=== PATIENT | female | born 1945 | race Caucasian/White ===

== ENCOUNTER 2023-05-11 08:44 | Outpatient (AMB) | payer MEDICARE, SELFPAY ==
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
[2023-05-11 08:50] VITALS: BP 118/70; BMI 30.8
== END 2023-05-11 10:31 | disposition home or self-care (01) ==
PROVIDERS: PCP Internal Medicine; Visit Provider Nurse Practitioner Family
DX: G24.3 Spasmodic torticollis (principal); R49.8 Other voice and resonance disorders; Q99.2 Fragile X chromosome; R29.818 Other symptoms and signs involving the nervous system
CPT/HCPCS: 99204

== ENCOUNTER → 2023-05-11 08:44 | Outpatient (BNVA) | payer MEDICARE, SELFPAY | PROVIDERS: PCP Internal Medicine; Visit Provider Nurse Practitioner Family | DX: G24.3 Spasmodic torticollis (principal); R49.8 Other voice and resonance disorders; Q99.2 Fragile X chromosome; R29.818 Other symptoms and signs involving the nervous system | CPT/HCPCS: 99202 ==

== ENCOUNTER 2023-06-27 09:20 | Outpatient (REF) | payer MEDICARE, SELFPAY ==
--- NOTE | ~2023-06-27 | MR_ITS ---
EXAMINATION: MR BRAIN WITHOUT CONTRAST CLINICAL INFORMATION: Tremor, ataxia COMPARISON: None available TECHNIQUE: MRI of the brain was obtained using routine sequences without contrast. FINDINGS: There is no reduced diffusion to suggest acute infarct. Susceptibility weighted sequence is within normal limits. No mass effect, extra-axial collection, midline shift, or other herniation. Chronic lacunar infarction in the right cerebellar hemisphere The ventricles and sulci are normal in size and configuration for the patient's age. Periventricular, subcortical, and pontine T2/FLAIR hyperintense foci are nonspecific but likely represent moderate to advanced chronic microvascular ischemic change. Intracranial flow voids are preserved. Mild ethmoid air cell mucosal thickening. The mastoid air cells are well-aerated. Bilateral intraocular lens placement. No focal expansile/destructive osseous lesion. MR/MR head/brain wo con IMPRESSION: No acute infarction. Moderate to advanced chronic microvascular ischemic change.
== END 2023-06-27 09:21 | disposition home or self-care (01) ==
LOC: HO.MRI 09:20
PROVIDERS: PCP Internal Medicine; Visit Provider Nurse Practitioner Family
DX: R25.1 Tremor, unspecified (principal); R49.8 Other voice and resonance disorders
CPT/HCPCS: 70551

== ENCOUNTER 2023-08-10 08:42 | Outpatient (AMB) | payer MEDICARE, SELFPAY ==
--- NOTE | 2023-08-10 08:51 | MHC.OFFVIS ---
Intake Vital Signs 08/10/23 08:52 Height 5 ft 3 in Weight 175 lb BMI 31.0 BP 120/72 Blood Pressure Location Rt brachial Position Sitting Pulse 56 Pulse Source Pulse Oximeter Pulse Oximetry (%) 97 Oxygen Delivery Method Room Air Intake Visit Reasons: 3M follow up-LVM Intake Note: Patient presents for 3 month follow up. I had Covid in july this is my first time out. Allergies No Known Allergies Allergy (Verified 08/10/23 09:02) Medication List - Last Reconciled 08/10/23 by QUINN Dangelo magnesium oxide 400 mg PO BEDTIME 30 days onabotulinumtoxinA (Botox) 100 units IM ONCE 12 weeks propranolol 10 mg PO BID 30 days riboflavin (vitamin B2) 400 mg PO DAILY 30 days HPI HPI Comments History of Present Illness Details 77-yr-old female presents for f/u visit. Pt did have an interval Covid-19 infection. Pt reports her headaches are a bit better. She thinks she has had a slight decrease in her tremor. Her voice tremor, spasms are still bothersome- her voice cracks, it makes it hard for other people to understand her. Denies recent swallowing difficulties. She can still be off-balance. Plans to start walking more. 06/27/23, MR BRAIN WITHOUT CONTRAST CLINICAL INFORMATION: Tremor, ataxia COMPARISON: None available TECHNIQUE: MRI of the brain was obtained using routine sequences without contrast. FINDINGS: -There is no reduced diffusion to suggest acute infarct. Susceptibility weighted sequence is within normal limits. No mass effect, extra-axial collection, midline shift, or other herniation. -Chronic lacunar infarction in the right cerebellar hemisphere -The ventricles and sulci are normal in size and configuration for the patient's age. Periventricular, subcortical, and pontine T2/FLAIR hyperintense foci are nonspecific but likely represent moderate to advanced chronic microvascular ischemic change. Intracranial flow voids are preserved. -Mild ethmoid air cell mucosal thickening. The mastoid air cells are well-aerated. Bilateral intraocular lens placement. No focal expansile/destructive osseous lesion. MR/MR head/brain wo con IMPRESSION: No acute infarction. Moderate to advanced chronic microvascular ischemic change. [facility] Medical History (Updated 08/10/23 @ 09:55 by QUINN Dangelo) Thyroid nodule Surgical History History of left cataract surgery History of intestinal surgery Family History Mother HTN (hypertension) Hyperlipidemia Stroke Social History Alcohol intake: current Comment: rarely Patient Tobacco Use Status: Never used Tobacco Review of Systems Const All systems reviewed & are unremarkable except as noted in HPI and below Physical Exam Vital Signs: Last Vital Signs Pulse 56 08/10/23 08:52 BP 120/72 08/10/23 08:52 Pulse Ox 97 08/10/23 08:52 Oxygen Delivery Method Room Air 08/10/23 08:52 BMI result Body Mass Index 31.0 Const General: cooperative and no acute distress Resp Effort & Inspection: normal respiratory effort and able to speak in complete sentences Neuro Other: General: A&O x's 3 Head/neck: Head tremor w/ Left laterocollis, with bilateral posterior and lateral cervical tightness and tenderness, limited cervical ROM. Eyes: Bilateral mild horizontal nystagmus on right lateral end gaze Expression: ok Voice: Soft w/ tremor, tight dysponia Tremor: Mild intermittent RUE tremor. 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 Discussed that Fragile X can increase risk for intracranial white matter disease, and thus importance in identifying and optimizing any comorbid CV risk factors. BP is normotenisve. Check labs Check head/neck CTA Encouraged pt to engage in regular physical activity, social and cognitive stimulating activities. Conisder starting ASA upon review of above. For tremor, cervical dystonia, voice tremor/dysphonia: Again- XR c-spine Continue Propranol 10mg bid Start Botox 100 IM for cervical dystonia, as pt has bothersome head tremor, left laterocollis, limited cervical ROM, and posterior/lateral cervical tightness and tenderness. Will request ENT consult at [facility]. Future considerations- PT/OT For headache: Continue Riboflavin 400mg qam and Mag Ox 400mg qhs. May continue OTC Tylenol or Aleve prn. f/u upon review of above and in-clinic in 6 months or sooner prn. Orders: Orders CRP High Sensitivity Today I63.9 - Cerebral infarction, unspecified, Q99.2 - Fragile X chromosome, R90.82 - White matter disease, unspecified Hemoglobin A1c Today I63.9 - Cerebral infarction, unspecified, Q99.2 - Fragile X chromosome, R90.82 - White matter disease, unspecified Lipid Panel with Reflex Today I63.9 - Cerebral infarction, unspecified, Q99.2 - Fragile X chromosome, R90.82 - White matter disease, unspecified CT angio head neck Today I63.9 - Cerebral infarction, unspecified, Q99.2 - Fragile X chromosome, R90.82 - White matter disease, unspecified Complete Blood Count Auto Diff Today I63.9 - Cerebral infarction, unspecified, Q99.2 - Fragile X chromosome, R90.82 - White matter disease, unspecified Comprehensive Met. 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
[2023-08-10 08:52] VITALS: BP 120/72; PULSE 56; O2SAT 97; BMI 31.0
== END 2023-08-10 10:12 | disposition home or self-care (01) ==
PROVIDERS: PCP Internal Medicine; Visit Provider Nurse Practitioner Family
DX: R49.8 Other voice and resonance disorders (principal); Q99.2 Fragile X chromosome; R90.82 White matter disease, unspecified; R25.1 Tremor, unspecified
CPT/HCPCS: 99214

== ENCOUNTER → 2023-08-10 08:42 | Outpatient (BNVA) | payer MEDICARE, SELFPAY | PROVIDERS: PCP Internal Medicine; Visit Provider Nurse Practitioner Family | DX: R49.8 Other voice and resonance disorders (principal); R90.82 White matter disease, unspecified; Q99.2 Fragile X chromosome; R25.1 Tremor, unspecified; I63.9 Cerebral infarction, unspecified | CPT/HCPCS: 99212 ==

== ENCOUNTER 2023-08-30 10:50 | Outpatient (AMB) | payer MEDICARE, SELFPAY ==
--- NOTE | 2023-08-30 11:04 | MHC.OFFVIS ---
Vital Signs 08/30/23 11:05 Height 5 ft 3 in Weight 175 lb BMI 31.0 BP 130/72 Blood Pressure Location Rt brachial Position Sitting Respiration 16 Pulse 72 Pulse Source Pulse Oximeter Pulse Oximetry (%) 98 Oxygen Delivery Method Room Air Intake Visit Reasons: BOTOX-LVM Intake Note: Pt presents to the office for Botox injections. 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 she is a fragile X carrier. ? Side effects including spread of toxin effect, dysphagia, breathing difficulties , bronchitis etc was discussed in detail and the patient agreed to the procedure.An informed consent was obtained ??? Botulinum toxin type A 100units X 1 -was diluted with 2 cc of normal saline at a concentration of 25 units in 0.5cc saline. Lot number [id number] expiration 09/2025 ??? Muscles injected ? left levator 25 units each right levator 50 units ??? Used- 75units discarded 25 units [facility] Medical History Thyroid nodule Surgical History History of left cataract surgery History of intestinal surgery Family History Mother HTN (hypertension) Hyperlipidemia Stroke Social History Alcohol intake: current Comment: rarely Patient Tobacco Use Status: Never used Tobacco Physical Exam Vital Signs: Last Vital Signs Pulse 72 08/30/23 11:05 Resp 16 08/30/23 11:05 BP 130/72 08/30/23 11:05 Pulse Ox 98 08/30/23 11:05 Oxygen Delivery Method Room Air 08/30/23 11:05 BMI result Body Mass Index 31.0 Const General: cooperative and no acute distress Neuro Other: General: A&O x's 3 Head/neck: Head tremor w/ Left laterocollis, with bilateral posterior and lateral cervical tightness and tenderness, limited cervical movement Office Procedures Botulinum toxin Injection 45345 - Dystonia Procedure code (CPT) selection complete Office Meds onabotulinumtoxinA 100 unit solution for injection Performing Provider: Vivi Coon MD Performing Location: [facility] [place] Administered by: Vivi Coon MD on 08/30/23 11:47 Dose Route Admin Location Dispensed Lot Number Expiration Date NDC Registered Dietitian 75 unit IM 100 units [id number] 09/05/25 4271-2846-51 [employer] 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
[2023-08-30 11:05] VITALS: BP 130/72; PULSE 72; RESP 16; O2SAT 98; BMI 31.0
== END 2023-08-30 11:42 | disposition home or self-care (01) ==
PROVIDERS: PCP Internal Medicine; Visit Provider Psychiatry & Neurology Neurology
DX: G24.3 Spasmodic torticollis (principal)
CPT/HCPCS: 64616

== ENCOUNTER → 2023-08-30 10:50 | Outpatient (BNVA) | payer MEDICARE, SELFPAY | PROVIDERS: PCP Internal Medicine; Visit Provider Psychiatry & Neurology Neurology | DX: G24.3 Spasmodic torticollis (principal) | CPT/HCPCS: 64616; 99211; J0585 ==

== ENCOUNTER 2023-09-28 08:37 | Outpatient (REF) | payer MEDICARE, SELFPAY ==
--- NOTE | ~2023-09-28 | XR_ITS ---
EXAMINATION: XR CERVICAL SPINE CLINICAL INFORMATION: Neck pain. COMPARISON: None available. TECHNIQUE: 5 views of the cervical spine. FINDINGS: The bones are diffusely demineralized. Degenerative changes between the anterior arch of C1 and the odontoid. Multilevel cervical spondylosis with mild loss of disc space height at C4-C5 and [id number] loss of disc space height at C5-C6. C7 is obscured by overlying bone and soft tissue structures, limiting evaluation. Facet hypertrophy with neural and foraminal encroachment at C4-C5 and C5-C6, greater on the left. XR/XR cervical spine 4V IMPRESSION: Multilevel cervical spondylosis most notable at C5-C6.
--- NOTE | ~2023-09-28 | CT_ITS ---
EXAMINATION: CT ANGIOGRAM NECK CLINICAL INFORMATION: 78-year-old female with cerebral infarction, unspecified, white matter disease, symptomatic form of fragile X syndrome. COMPARISON: 06/27/2023 MRI brain. TECHNIQUE: Volumetric CT angiography of the head and neck was performed from the upper thorax to the skull vertex utilizing the bolus intravenous administration of 70 mL of Omnipaque 350 contrast material. 2D multiplanar reconstructions and 3D MIP renderings were performed either on an independent workstation or at the CT console workstation. Precontrast and delayed postcontrast CT of the brain was also performed. The degree of stenosis determined by NASCET criteria. This CT examination was performed using dose optimization techniques as appropriate, variously including the following: *Automated exposure control *Adjustment of mA and/or kV according to patient size (this includes techniques or standardized protocols for targeted exams where dose is matched to indication/reason for exam; i.e. extremities or head) *Use of iterative reconstruction technique DLP: 2185 mGy-cm FINDINGS: CTA NECK/UPPER CHEST: Minimal partially calcified plaque in the distal arch. Standard three-vessel arch configuration noted. Mild noncalcified atheromatous plaque in the proximal left subclavian artery with a kink in the vessel just proximal to the takeoff of the left vertebral artery with associated moderate focal luminal diameter stenosis. More distally, the left subclavian artery is patent and normal in caliber. Proximal left common and proximal right common carotid arteries are patent and normal in caliber. The innominate artery is patent and normal in caliber. Some calcified plaque at the origin of the right subclavian artery without significant focal stenosis possibly. More distally, the right occluding the artery is not well visualized. The vertebral arteries are relatively codominant. Left vertebral artery origin is well visualized and widely patent. Right vertebral artery origin also well visualized and widely patent. There is some calcified plaque in the proximal right vertebral artery without significant focal stenosis. Mild soft plaque in the proximal left vertebral artery without significant focal stenosis. Otherwise, the vertebral arteries are patent and normal in caliber bilaterally. Right Carotid: Right common carotid artery is patent and normal in caliber. There is minimal calcified and noncalcified plaque in the right carotid bulb and proximal right ICA without significant luminal diameter reduction by NASCET criteria. Less than 50%. External carotid artery is patent and normal in caliber. More distally, the hcf-wc-pgbrsu right internal carotid artery is patent and normal in caliber and smoothly contoured. Left carotid: Common carotid artery is patent and normal in caliber. There is minimal noncalcified plaque in the left carotid bulb with less than 50% diameter reduction stenosis by NASCET criteria. Distal to this, the left ICA is patent and normal in caliber. The ECA is patent and normal in caliber. CTA HEAD: The intracranial ICAs are patent without significant focal stenosis or segmental occlusion. Minimal atheromatous irregularity and mild tortuosity of the carotid siphons noted. The A1 and A2 segments are patent and normal in caliber. The anterior communicating artery appears within normal limits. The M1 segments, MCA bifurcations and M2 branches are patent and normal in caliber. The intradural vertebral arteries are patent without significant focal stenosis. The basilar artery is patent and normal in caliber. Right PICA is visualized. Left AICA/PICA noted. Superior cerebellar arteries and posterior cerebral arteries are patent and normal in caliber. Right PCom noted. CT BRAIN: Uies-zl-spgqfylc generalized diffuse brain parenchymal volume loss similar to the prior CT. Numerous patchy and focally confluent regions of hypodensity are seen in the white matter of both cerebral hemispheres involving subcortical and deeper white matter bilaterally consistent with chronic ischemic microangiopathy with a similar pattern and distribution to the previous MRI. Crow-white matter interface is preserved. No acute territorial infarct, intracranial hemorrhage, extra-axial fluid collection, space-occupying process or mass effect. No intracranial mass lesions or pathologic intracranial enhancement are identified. Ganglionic structures appear intact. The ventricular system and subarachnoid spaces are consistent with mild volume loss. No hydrocephalus. The visualized orbital soft tissue structures are remarkable for bilateral lens replacements. Bony structures appear grossly intact. The visualized airspaces are unopacified. Extracranial soft tissue structures are grossly unremarkable. CT NECK/UPPER CHEST NONVASCULAR IMAGES: Limited assessment. No acute process. Subcentimeter thyroid nodules in both thyroid lobes. Not clinically significant. No followup imaging recommended. (This recommendation is offered as general guidance and does not apply to all patients, such as those with clinical risk factors for thyroid cancer.) Limited assessment of the included upper thorax. Heterogeneous lung attenuation bilaterally is likely reflective of the expiratory phase of this exam. Cannot exclude scattered areas of atelectatic lung and/or ground-glass opacities. Visualized mediastinum is unremarkable. Skeletal: Severe disc space height loss at C5-C6 noted with degenerative endplate changes and spondylosis. Tqqp-xa-lcrvpcbr disc space height loss at C3-C4 and C4-C5 with mild spondylosis. Osteopenia is suggested. CT/CT angio head neck IMPRESSION: 1. Ftsb-db-hcrghptb generalized diffuse brain parenchymal volume loss and chronic ischemic microangiopathy in the white matter of both cerebral hemispheres, as described above. No acute intracranial process. 2. No large vessel occlusion or significant focal stenosis within the intracranial circulation. 3. Minimal noncalcified plaque at the bilateral carotid bulbs and proximal ICAs and minimal calcified plaque at the right carotid bulb with less than 50% diameter reduction stenosis by NASCET criteria bilaterally. 4. Kink in the proximal left subclavian artery with moderate focal luminal diameter reduction stenosis but with normal caliber distal to this. Evidence of soft plaque in the proximal right subclavian artery as well. 5. Skeletal findings as discussed above. 6. Heterogeneous lung attenuation bilaterally which may be reflective of the expiratory phase of this exam. Cannot exclude scattered areas of atelectatic lung and/or groundglass opacities. Follow-up as per clinical indications. 7. Thyroid nodules in both thyroid lobes. See above for discussion.
[2023-09-28 09:24] LABS: MANUAL DIFF FLAG NO
[2023-09-28 09:33] LABS: Basophils Absolute Auto 0.1 X10*3/uL (0.0-0.2); Basophils Percent Auto 1.1 % (0-2); Eosinophils Absolute Auto 0.3 X10*3/uL (0.0-0.4); Eosinophils Percent Auto 4.1 % (0-4); Hematocrit 40.2 % (37.0-47.0); Hemoglobin 13.3 g/dl (12.0-16.0); Imm Gran Abs Auto 0.03 X10*3/uL (0.00-0.03); Imm Gran Pct Auto 0.4 % (0.0-0.4); Lymphocytes Absolute Auto 3.2 X10*3/uL (1.2-4.9); Lymphocytes Percent Auto 39.3 % (20-40); Mean Corpuscular HGB Conc 33.1 g/dl (31.0-35.0); Mean Corpuscular Hemoglobin 28.6 pg (27.0-33.0); Mean Corpuscular Volume 86.5 fL (80.0-98.0); Mean Platelet Volume 11.1 fL (9.4-12.3); Monocytes Absolute Auto 0.7 X10*3/uL (0.1-1.2); Monocytes Percent Auto 8.3 % (2-11); Neutrophils Absolute Auto 3.8 x10*3/uL (2.0-8.3); Neutrophils Percent Auto 46.8 % (45-73); Platelet Count 252 X10*3/uL (160-400); Red Blood Count 4.65 X10*6/uL (4.20-5.50); Red Cell Distribution Width 14.8 % (11.0-16.0)
[2023-09-28 10:07] LABS: Alanine Aminotransferase 19 U/L (0-31); Albumin Level 3.9 g/dL (3.5-5.0); Alkaline Phosphatase 88 U/L (39-117); Anion Gap 11 (12-20); Aspartate Amino Transferase 19 U/L (5-31); Bilirubin Total 0.3 mg/dL (0.0-1.0); Blood Urea Nitrogen 11 mg/dL (9-16); Calcium 9.6 mg/dL (8.4-10.2); Carbon Dioxide 25 mmol/L (22-29); Chloride 109 mmol/L (96-108); Cholesterol 162 mg/dL (<200); Estimated Glomerular Filt Rate > 60; Glucose Random 103 mg/dL (60-115); HDL Cholesterol 47 mg/dL (>40); LDL Cholesterol Calculated 94 mg/dL (<100); Potassium 4.4 mmol/L (3.3-5.1); Sodium 141 mmol/L (135-145); Total Protein 6.4 g/dL (6.5-8.0); Triglycerides 105 mg/dL (<150)
[2023-09-28 10:13] LABS: Estimated Average Glucose 108 mg/dL; Hemoglobin A1c % 5.4 % (<6.0)
[2023-09-28 10:15] LABS: Erythrocyte Sedimentation Rate 2 MM/HR (0-20)
[2023-09-28 10:23] LABS: Reflex LDLD? No
[2023-09-28] MEDS: iohexoL 350 MG/ML 100 ML INFUS..BTL IV (10:58)
[2023-09-29 14:18] LABS: CRP High Sensitivity <0.2 mg/L
== END 2023-09-28 08:38 | disposition home or self-care (01) ==
LOC: HO.CT 08:37
PROVIDERS: PCP Internal Medicine; Visit Provider Nurse Practitioner Family
DX: I63.9 Cerebral infarction, unspecified (principal); R90.82 White matter disease, unspecified; Q99.2 Fragile X chromosome; M54.2 Cervicalgia
CPT/HCPCS: 36415; 70496; 70498; 72050; 80053; 80061; 83036; 85025; 85652; 86141; Q9967

== ENCOUNTER 2023-12-06 09:31 | Outpatient (AMB) | payer MEDICARE, SELFPAY ==
--- NOTE | 2023-12-06 09:37 | A.OFFVIS_ITS ---
Vital Signs 12/06/23 09:38 Height 5 ft 3 in Weight 175 lb BMI 31.0 BP 118/68 Blood Pressure Location Rt brachial Position Sitting Respiration 16 Pulse 60 Pulse Source Pulse Oximeter Pulse Oximetry (%) 97 Oxygen Delivery Method Room Air Intake Visit Reasons: BOTOX - Mailbox Full Intake Note: Pt presents to the office for Botox injections for cervical dystonia. 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 she is a fragile X carrier. ? Side effects including spread of toxin effect, dysphagia, breathing difficulties , bronchitis etc was discussed in detail and the patient agreed to the procedure.An informed consent was obtained ??? Botulinum toxin type A 100units X 1 -was diluted with 4 cc of normal saline at a concentration of 25 units in 0.5cc saline. Lot number [id number] expiration 03/2026 ??? Muscles injected ? left levator 75 units each right levator 50 units jordon [id number] units each ??? Used- 175units discarded 25 units PFSH Medical History Thyroid nodule Surgical History History of left cataract surgery History of intestinal surgery Family History Mother HTN (hypertension) Hyperlipidemia Stroke Social History Alcohol intake: current Comment: rarely Patient Tobacco Use Status: Never used Tobacco Physical Exam Vital Signs: Last Vital Signs Pulse 60 12/06/23 09:38 Resp 16 12/06/23 09:38 BP 118/68 12/06/23 09:38 Pulse Ox 97 12/06/23 09:38 Oxygen Delivery Method Room Air 12/06/23 09:38 BMI result Body Mass Index 31.0 Const General: cooperative and no acute distress Neuro Other: General: A&O x's 3 Head/neck: Head tremor w/ Left laterocollis, with bilateral posterior and lateral cervical tightness and tenderness, limited cervical movement Office Procedures Botulinum toxin Injection 94904 - Dystonia Procedure code (CPT) selection complete Office Meds onabotulinumtoxinA 200 unit solution for injection Performing Provider: Vivi Coon MD Performing Location: [facility] – [place] [facility] Administered by: Vivi Coon MD on 12/06/23 10:17 Dose Route Admin Location Dispensed Lot Number Expiration Date [facility] 175 unit IM 200 units [id number] 03/08/26 0921-0875-69 ALLERGAN/BOTOX Comments: see hpi Assessment & Plan Assessment & Plan (1) 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
[2023-12-06 09:38] VITALS: BP 118/68; PULSE 60; RESP 16; O2SAT 97; BMI 31.0
== END 2023-12-06 10:16 | disposition home or self-care (01) ==
PROVIDERS: PCP Internal Medicine; Visit Provider Psychiatry & Neurology Neurology
DX: G24.3 Spasmodic torticollis (principal)
CPT/HCPCS: 64616

== ENCOUNTER → 2023-12-06 09:31 | Outpatient (BNVA) | payer MEDICARE, SELFPAY | PROVIDERS: PCP Internal Medicine; Visit Provider Psychiatry & Neurology Neurology | DX: G24.3 Spasmodic torticollis (principal) | CPT/HCPCS: 64616; 99211; J0585 ==

== ENCOUNTER 2024-01-23 09:07 | Outpatient (AMB) | payer MEDICARE, SELFPAY ==
[2024-01-23 09:09] VITALS: BP 120/78; PULSE 52; O2SAT 97; BMI 31.0
--- NOTE | 2024-01-23 09:09 | MHC.OFFVIS ---
Vital Signs 01/23/24 09:09 Height 5 ft 3 in Weight 175 lb BMI 31.0 BP 120/78 Blood Pressure Location Rt brachial Position Sitting Pulse 52 Pulse Source Pulse Oximeter Pulse Oximetry (%) 97 Oxygen Delivery Method Room Air Intake Visit Reasons: Follow up Intake Note: Patient presents for follow up. Allergies No Known Allergies Allergy (Verified 01/23/24 09:12) Medication List - Last Reconciled 01/23/24 by QUINN Dangelo onabotulinumtoxinA (Botox) 100 units IM ONCE 12 weeks propranolol 10 mg PO BID 30 days riboflavin (vitamin B2) 400 mg PO DAILY 30 days rimegepant (Nurtec ODT) 75 mg PO ONCE PRN 30 days MDD 1 tab timolol 0.25% 1 drp ophthalmic (eye) DAILY HPI Comments Details: 78-yr-old female presents for f/u visit. Pt denies any significant interval medical changes. She has seen dermatology for some Also saw GI- was having diarrhea, advised to take probiotics- which has helped. CT/CTA of neck did mention small jordon thyroid nodules- pt has known thyroid nodule- had biopsy 2 yrs ago and has f/u imaging. CT/CTA also showed ? upper lung atelectasis vs ground glass opacities- pt denies h/o asthma, smoking, SOB, wheezing. CT/CTA did show notable degenerative changes and pt has been scheduled for c-spine MRI to further assess- scheduled next week. CT/CTA- did raise ? of osteopenia- she is taking Calcium and Glucosamine. She has had a bone density scan. Has had osteoporisis tx in the past. CT/CTA- proximal left subclavian artery kink with moderate focal luminal diameter reduction stenosis but with normal caliber distal to this. Evidence of soft plaque in the proximal right subclavian artery as well. Notes occasional upper left region discomfort. LUE hand will fall asleep when using her phone etc. Denies LUE swelling, discoloration. Pt reports starting the Botox for her cervical dystonia, she has not been having as many headaches. Her neck and shoulders can be tight. After the last Botox tx where the dose was increased, she did initially have some increased neck weakness and difficulty lifting her head, which resolved within a few days. She is having less head tremor- feels the propranolol helps with this. 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 She has not heard from [facility] yet. No usual UE tremor, but her writing may be more shaky. No gait issues. Can no longer put pants on one leg at a time. No falls. Can be lightheaded at times. Memory is good- may have some difficulty recalling someone's name who she knows but is not close to. Usually the name comes to her. She has not had any recent migraines. Rarely now has a headache. She did try Nurtec, was not helpful. [facility], [facility] Medical History Thyroid nodule Surgical History History of left cataract surgery History of intestinal surgery Family History Mother HTN (hypertension) Hyperlipidemia Stroke Social History Alcohol intake: current Comment: rarely Patient Tobacco Use Status: Never used Tobacco Physical Exam Vital Signs: Last Vital Signs Pulse 52 01/23/24 09:09 BP 120/78 01/23/24 09:09 Pulse Ox 97 01/23/24 09:09 Oxygen Delivery Method Room Air 01/23/24 09:09 BMI result Body Mass Index 31.0 Const General: cooperative and no acute distress Orientation/consciousness: patient oriented x3 Resp Effort & Inspection: normal respiratory effort and able to speak in complete sentences Neuro Other: General: A&O x's 3 Head/neck: Decreased head tremor w/ decreased Left laterocollis, with decreased bilateral posterior and lateral cervical tightness. Has improved cervical ROM. Eyes: Bilateral mild horizontal nystagmus on right lateral end gaze Expression: ok Voice: Soft w/ tremor, tight dysphonia Tremor: Mild intermittent RUE tremor. Tone: RUE mild tightness Dyskinesia: None FFM: Ok Foot taps: Ok Gait: Decreased right arm swing, right shoulder drooped, mild RLE elevated step, Psych: pleasant affect General: patient oriented x3 Cranial nerves: Yes CN's II-XII intact bilaterally Cognition (Neuro): normal cognition Psych Appearance: grossly normal Mental Status: mental status grossly normal Affect: normal affect Attitude: cooperative Results Reviewed Results Reviewed: September 2023, CT/CT angio head neck IMPRESSION: 1. Aoka-jx-ystguiec generalized diffuse brain parenchymal volume loss and chronic ischemic microangiopathy in the white matter of both cerebral hemispheres, as described above. No acute intracranial process. 2. No large vessel occlusion or significant focal stenosis within the intracranial circulation. 3. Minimal noncalcified plaque at the bilateral carotid bulbs and proximal ICAs and minimal calcified plaque at the right carotid bulb with less than 50% diameter reduction stenosis by NASCET criteria bilaterally. 4. Kink in the proximal left subclavian artery with moderate focal luminal diameter reduction stenosis but with normal caliber distal to this. Evidence of soft plaque in the proximal right subclavian artery as well. 5. Skeletal findings as discussed above. 6. Heterogeneous lung attenuation bilaterally which may be reflective of the expiratory phase of this exam. Cannot exclude scattered areas of atelectatic lung and/or groundglass opacities. Follow-up as per clinical indications. 7. Thyroid nodules in both thyroid lobes. See above for discussion. Assessment & Plan Assessment & Plan (1) Cervical dystonia: Code(s): G24.3 - Spasmodic torticollis Category: Medical (2) Voice tremor: Code(s): R49.8 - Other voice and resonance disorders Category: Medical (3) 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: Code(s): Q99.2 - Fragile X chromosome Category: Medical (4) Migraine without aura: Code(s): G43.009 - Migraine without aura, not intractable, without status migrainosus Category: Medical (5) Difficulty balancing: Code(s): R29.818 - Other symptoms and signs involving the nervous system Category: Medical (6) Numbness and tingling of both upper extremities: Comment: L > R Code(s): R20.0 - Anesthesia of skin; R20.2 - Paresthesia of skin Category: Medical (7) Cervical spondylosis: Code(s): M47.812 - Spondylosis without myelopathy or radiculopathy, cervical region Category: Medical Plan Brain MRI w/o report and images w/pt- Moderate to advanced chronic microvascular ischemic change, w/ chronic lacunar infarction in the right cerebellar hemisphere. Reviewed head and neck CTA- Known Qfml-cs-lnfyaobs generalized diffuse brain parenchymal volume loss and chronic bilateral cerebral white matter ischemic microangiopathy. No large vessel intracranial occlusion or significant focal stenosis. Minimal Jordon ICA noncalcified plaque at the bilateral carotid bulbs and proximal ICAs and minimal calcified plaque at the right carotid bulb with less than 50% stenosis. Kink in the proximal left subclavian artery with moderate focal luminal diameter reduction stenosis but with normal caliber distal to this. Evidence of soft plaque in the proximal right subclavian artery Known spondylosis. Heterogeneous lung attenuation bilaterally which may be reflective of the expiratory phase of this exam. Cannot exclude scattered areas of atelectatic lung and/or groundglass opacities. Follow-up as per clinical indications. Known Thyroid nodules in both thyroid lobes. Discussed that Fragile X can increase risk for intracranial white matter disease, and thus importance in identifying and optimizing any comorbid CV risk factors. BP is normotenisve. Encouraged pt to engage in regular physical activity, social and cognitive stimulating activities. Start ASA 81mg qhs.. For tremor, cervical dystonia, voice tremor/dysphonia: C-spine MRI as ordered- upon review consider referral to vascular for left subclavian artery narrowing. Continue Propranol 10mg bid Trial Baclofen 5mg bid prn voice tremor/dysphonia. Continue Botox up to 200 IM for cervical dystonia, as pt has had good clincial effect form use. Pt may consider trying slightly less Botox at her next botox tx to minize risk for excess cervical weakness. Will f/u on order for ENT consult at [facility]. Future considerations- PT/OT For headache: Continue Riboflavin 400mg qam and Mag Ox 400mg qhs. May continue OTC Tylenol or Aleve prn. Pt did try Nurtec- did not find it effective. f/u upon review of above and in-clinic in 6 months or sooner prn. Medications: New aspirin bedtime 81 mg PO DAILY 30 days 30 tabs 6RF baclofen 5 mg PO BID 30 days PRN 30 tabs 1RF voice tremor or muscle spasm Refilled riboflavin (vitamin B2) 400 mg PO DAILY 30 days 30 tabs 6RF Discontinued rimegepant (Nurtec ODT) Discontinued Reason: Doctor's Order 75 mg PO ONCE 30 days PRN 16 tabs 3RF migraine headache MDD 1 tab G43.009 - Migraine without aura, not intractable, without status migrainosus Coding Level of Care Code Est Pt Level 4 (24820) Diagnoses Cervical dystonia G24.3 Voice tremor R49.8 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 Q99.2 Migraine without aura G43.009 Difficulty balancing R29.818 Numbness and tingling of both upper extremities R20.0; R20.2 Cervical spondylosis M47.812
== END 2024-01-23 10:09 | disposition home or self-care (01) ==
PROVIDERS: PCP Internal Medicine; Visit Provider Nurse Practitioner Family
DX: G24.3 Spasmodic torticollis (principal); R49.8 Other voice and resonance disorders; Q99.2 Fragile X chromosome; G43.009 Migraine without aura, not intractable, without status migrainosus; R29.818 Other symptoms and signs involving the nervous system; R20.0 Anesthesia of skin; R20.2 Paresthesia of skin; M47.812 Spondylosis without myelopathy or radiculopathy, cervical region
CPT/HCPCS: 99214

== ENCOUNTER → 2024-01-23 09:07 | Outpatient (BNVA) | payer MEDICARE, SELFPAY | PROVIDERS: PCP Internal Medicine; Visit Provider Nurse Practitioner Family | DX: G24.3 Spasmodic torticollis (principal); G43.009 Migraine without aura, not intractable, without status migrainosus; R49.8 Other voice and resonance disorders; Q99.2 Fragile X chromosome; R29.818 Other symptoms and signs involving the nervous system; R20.0 Anesthesia of skin; R20.2 Paresthesia of skin; M47.812 Spondylosis without myelopathy or radiculopathy, cervical region | CPT/HCPCS: 99212 ==

== ENCOUNTER → 2024-01-30 08:55 | Outpatient (BNV) | payer MEDICARE, SELFPAY | PROVIDERS: PCP Internal Medicine; Visit Provider Radiology Diagnostic Radiology | DX: M47.892 Other spondylosis, cervical region (principal); M25.511 Pain in right shoulder; M25.512 Pain in left shoulder | CPT/HCPCS: 72141 ==

== ENCOUNTER 2024-01-30 08:57 | Outpatient (REF) | payer MEDICARE, SELFPAY ==
--- NOTE | ~2024-01-30 | MR_ITS ---
EXAMINATION: MR CERVICAL SPINE WITHOUT CONTRAST CLINICAL INFORMATION: Degenerative arthritis. Bilateral shoulder pain. Left upper extremity numbness. COMPARISON: No priors. Correlated to x-ray dated September 28, 2023. TECHNIQUE: MRI of the cervical spine was obtained using routine sequences without contrast. FINDINGS: The examination has been submitted for interpretation on March 04, 2024. Craniocervical junction is intact. Multilevel disc desiccation more conspicuous at C5-6. There is a subtle grade 1 retrolisthesis C5-6 and grade 1 anterolisthesis C6-7. Cervical spinal cord signal is normal. C2-3: No disc herniation. No neuroforamina stenosis. No cord compression. C3-4: Central disc osteophyte complex formation. No neuroforamina stenosis. No cord compression. C4-5: Central disc osteophyte complex formation. No neuroforamina stenosis. No cord compression. C5-6: Broad-based disc osteophyte complex formation. Ventral deformity of the thecal sac. Buckling deformity of the dorsal aspect of the thecal sac secondary to ligamentum flavum. Bilateral neuroforamina narrowing. Bilateral perineural cysts. C6-7: No disc herniation. No neural foramina stenosis. No cord compression. C7-T1: No disc herniation. No neuroforamina stenosis. No cord compression. No prevertebral compartment hematoma, mass or fluid collection. Flow-void signal within the main vessels is normal. MR/MR cervical spine wo con IMPRESSION: Multilevel cervical spondylosis more conspicuous at C5-6 without cord compression, edema and or myelopathy. Electronically signed by: Franki Chavez MD 03/04/2024 11:46 AM EDT
== END 2024-01-30 08:58 | disposition home or self-care (01) ==
LOC: HO.MRI 08:57
PROVIDERS: PCP Internal Medicine; Visit Provider Nurse Practitioner Family
DX: M54.2 Cervicalgia (principal); G24.3 Spasmodic torticollis; M47.812 Spondylosis without myelopathy or radiculopathy, cervical region
CPT/HCPCS: 72141

== ENCOUNTER 2024-03-11 09:12 | Outpatient (AMB) | payer MEDICARE, SELFPAY ==
--- NOTE | 2024-03-11 09:12 | MHC.OFFVIS ---
Vital Signs 03/11/24 09:13 Height 5 ft 3 in Weight 175 lb BMI 31.0 Intake Visit Reasons: BOTOX Intake Note: Patient presents for follow up botox Allergies No Known Allergies Allergy (Verified 03/11/24 09:16) Medication List - Last Reconciled 03/11/24 by Vivi Coon MD aspirin 81 mg PO DAILY 30 days baclofen 5 mg PO BID PRN 30 days onabotulinumtoxinA (Botox) 100 units IM ONCE 12 weeks propranolol 10 mg PO BID 30 days riboflavin (vitamin B2) 400 mg PO DAILY 30 days timolol 0.25% 1 drp ophthalmic (eye) DAILY HPI Comments Details: 78y/o female comes for treatment of her cervical dystonia . she is a fragile X carrier. ? Side effects including spread of toxin effect, dysphagia, breathing difficulties , bronchitis etc was discussed in detail and the patient agreed to the procedure.An informed consent was obtained ??? Botulinum toxin type A 200units X 1 -was diluted with 4 cc of normal saline at a concentration of 25 units in 0.5cc saline. Lot number [id number] expiration 06/2026 ??? Muscles injected ? left levator 50 units each right levator 50 units jordon [id number] units each ??? Used- 150units discarded 50 units PFSH Medical History Thyroid nodule Surgical History History of left cataract surgery History of intestinal surgery Family History Mother HTN (hypertension) Hyperlipidemia Stroke Social History Alcohol intake: current Comment: rarely Patient Tobacco Use Status: Never used Tobacco Physical Exam Vital Signs: BMI result Body Mass Index 31.0 Const General: cooperative and no acute distress Orientation/consciousness: patient oriented x3 Resp Effort & Inspection: normal respiratory effort and able to speak in complete sentences Neuro Other: General: A&O x's 3 Head/neck: Decreased head tremor w/ decreased Left laterocollis, with decreased bilateral posterior and lateral cervical tightness. Has improved cervical ROM. Eyes: Bilateral mild horizontal nystagmus on right lateral end gaze Expression: ok Voice: Soft w/ tremor, tight dysphonia Tremor: Mild intermittent RUE tremor. Tone: RUE mild tightness Dyskinesia: None FFM: Ok Foot taps: Ok Gait: Decreased right arm swing, right shoulder drooped, mild RLE elevated step, Psych: pleasant affect General: patient oriented x3 Cranial nerves: Yes CN's II-XII intact bilaterally Cognition (Neuro): normal cognition Psych Appearance: grossly normal Mental Status: mental status grossly normal Affect: normal affect Attitude: cooperative Office Procedures Botulinum toxin Injection 51268 - Dystonia Procedure code (CPT) selection complete Office Meds onabotulinumtoxinA 200 unit solution for injection Performing Provider: Vivi Coon MD [place] [facility] [place] [facility] Administered by: Vivi Coon MD on 03/11/24 09:37 Dose Route Admin Location Dispensed Lot Number Expiration Date 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
[2024-03-11 09:13] VITALS: BMI 31.0
== END 2024-03-11 09:32 | disposition home or self-care (01) ==
LOC: HO.HSMS 09:12
PROVIDERS: PCP Internal Medicine; Visit Provider Psychiatry & Neurology Neurology
DX: G24.3 Spasmodic torticollis (principal)
CPT/HCPCS: 64616

== ENCOUNTER → 2024-03-11 09:12 | Outpatient (BNVA) | payer MEDICARE, SELFPAY | PROVIDERS: PCP Internal Medicine; Visit Provider Psychiatry & Neurology Neurology | DX: G24.3 Spasmodic torticollis (principal) | CPT/HCPCS: 64616; 99211; J0585 ==

== ENCOUNTER → 2024-07-09 09:21 | Outpatient (BNVA) | payer MEDICARE, SELFPAY | PROVIDERS: PCP Internal Medicine; Visit Provider Psychiatry & Neurology Neurology | DX: G24.3 Spasmodic torticollis (principal) | CPT/HCPCS: 64616; 99211; J0585 ==

== ENCOUNTER 2024-07-09 09:22 | Outpatient (AMB) | payer MEDICARE, SELFPAY ==
--- NOTE | 2024-07-09 09:22 | A.OFFVIS_ITS ---
Vital Signs 07/09/24 09:27 Height 5 ft 3 in Weight 171 lb BMI 30.3 BP 128/72 Blood Pressure Location Rt brachial Position Sitting Pulse 54 Pulse Source Pulse Oximeter Pulse Oximetry (%) 99 Oxygen Delivery Method Room Air Intake Visit Reasons: BOTOX Intake Note: patient here for botox injection. 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 ? Side effects including spread of toxin effect, dysphagia, breathing difficulties , bronchitis etc was discussed in detail and the patient agreed to the procedure.An informed consent was obtained ??? Botulinum toxin type A 200units X 1 -was diluted with 4 cc of normal saline at a concentration of 25 units in 0.5cc saline. Lot number [id number] expiration 07/2026 ??? Muscles injected ? left levator 50 units each right levator 50 units jordon [id number] units each jordon temporlais 25 units each ??? Used- 200 units discarded 0 units PFSH Medical History Thyroid nodule Surgical History History of left cataract surgery History of intestinal surgery Family History Mother HTN (hypertension) Hyperlipidemia Stroke Social History Alcohol intake: current Comment: rarely Patient Tobacco Use Status: Never used Tobacco Physical Exam Vital Signs: Last Vital Signs Pulse 54 07/09/24 09:27 BP 128/72 07/09/24 09:27 Pulse Ox 99 07/09/24 09:27 Oxygen Delivery Method Room Air 07/09/24 09:27 BMI result Body Mass Index 30.3 Const General: cooperative and no acute distress Orientation/consciousness: patient oriented x3 Resp Effort & Inspection: normal respiratory effort and able to speak in complete sentences Neuro Other: General: A&O x's 3 Head/neck: Decreased head tremor w/ decreased Left laterocollis, with decreased bilateral posterior and lateral cervical tightness. General: patient oriented x3 Cranial nerves: Yes CN's II-XII intact bilaterally Cognition (Neuro): normal cognition Psych Appearance: grossly normal Mental Status: mental status grossly normal Affect: normal affect Attitude: cooperative Office Procedures Botulinum toxin Injection 64235 - Dystonia Procedure code (CPT) selection complete Office Meds onabotulinumtoxinA 200 unit solution for injection Performing Provider: Vivi Coon MD [place] [facility] [place] [facility] Administered by: Vivi Coon MD on 07/09/24 09:56 Dose Route Admin Location Dispensed Lot Number Expiration Date [facility] Mental Health Consultant 200 unit IM 200 units [id number] ALLERGAN/BOTOX Comments: see hpi Assessment & Plan Assessment & Plan (1) 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
[2024-07-09 09:27] VITALS: BP 128/72; PULSE 54; O2SAT 99; BMI 30.3
--- OUTSIDE RECORDS SUMMARY | 2024-07-09 10:21 | XMS_ITS | Clinical Summary ---
Author Organization [address] [place] [address] [place] [phone] Phone Care Team Providers Care Envelope Cutter Name Role Phone Tootie Redd DO Primary Care Provider [phone] Allergies No known active allergies Medications B complex-vitamin C-folic acid (NEPHRO-REY) 0.8 mg tablet Take 1 tablet by mouth 1 (one) time each day. Active glucosamine-cho ndroitin 500-400 mg tablet Take 1 tablet by mouth 3 (three) times a day. Active aspirin 81 mg EC tablet Take 1 tablet (81 mg total) by mouth 1 (one) time each day. Active geriatric multivitamins-m inerals 0.5-0.6-7-0.7 mg elixir Take 5 mL by mouth 1 (one) time each day. Active baclofen (LIORESAL) 10 mg tablet Take 0.5 tablets (5 mg total) by mouth 3 (three) times a day. Active propranoloL (INDERAL) 10 mg tablet Take 1 tablet (10 mg total) by mouth 3 (three) times a day. Active timoloL (BETIMOL) 0.25 % ophthalmic solution 1-2 drops 2 (two) times a day. 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 HTN, de pression Relation Name Status Comments Father Mother Social History Tobacco Use Types Packs/Day Years Used Date Smoking Tobacco: Never Smokeless Tobacco: Never Alcohol Use Standard Drinks/Week Comments Yes 0 (1 standard drink = 0.6 oz pur e alcohol) Comments Unknown Sex and Gender Information Value Date Recorded Sex Assigned at Not on file Legal Sex Female 6:42 PM EST Gender Identity Not on file Sexual Orientation Not on file Obstetrics History Last Filed Vital Signs Vital Sign Reading Time Taken Comments Blood Pressure 136/68 04/29/2024 10:49 AM EST Pulse 52 04/29/2024 10:49 AM EST Temperature 36.5 ??C (97.7 ??F) 04/29/2024 10:[address] Respiratory Rate - - Oxygen Saturation 97% 04/29/2024 10:49 AM EST Inhaled Oxygen Concentration - - Weight 74.8 kg (165 lb) 12/04/2023 9:04 AM EDT Height 160 cm (5' 3 ) 12/04/2023 9:04 AM EDT Body Mass Index 29.23 12/04/2023 9:04 AM EDT Plan of Treatment Health Maintenance Due Date Last Done Comments Depression Screening 07/14/2023 Falls Risk Assessment 07/14/2023 Hepatitis C Screening 07/14/2023 Medicare Annual Wellness Visit 07/14/2023 Osteoporosis Screening (Bone Density Screening) 07/14/2023 Social Influencers of Health Screening 07/14/2023 COVID-19 Vaccine ( season) 2024 04/10/2023, 11/03/2022, 03/04/2022, Additional history exists Influenza Vaccine (#1) 2024 , 01/24/2020, 02/03/2018, Additional history exists DTaP,Tdap,and Td Vaccines (2 - Td or Tdap) 12/03/2033 12/04/2023 Zoster Vaccines Completed 11/09/2020, 01/24/2020 Pneumococcal Vaccine: 50+ Years Completed 11/03/2022 RSV Immunization Patients 60+ Years Old Completed 04/10/2023 HIB Vaccines Aged Out No longer eligi ble based on patient's age to complete this topic HPV Vaccines Aged Out No longer eligi ble based on patient's age to complete this topic Hepatitis A Vaccines Aged Out No long er eligible based on patient's age to complete this topic Hepatitis B Vaccines Aged Out No long er eligible based on patient's age to complete this topic IPV Vaccines Aged Out No longer eligi ble based on patient's age to complete this topic MMR Vaccines Aged Out No longer eligi ble based on patient's age to complete this topic Meningococcal ACWY Vaccine Aged Out N o longer eligible based on patient's age to complete this topic Meningococcal B Vacine Aged Out No lo nger eligible based on patient's age to complete this topic RSV Immunization Patients Under 20 months Aged Out No longer eligible based on patient's age to complete this topic Varicella Vaccines Aged Out No longer eligible based on patient's age to complete this topic Insurance [employer] MEDICARE ADVANTAGE [place] Care Teams Envelope Cutter Relationship Specialty Start Date End Date Tootie Redd DO [address] [facility] [place] [address] PCP - General 01/05/23
== END 2024-07-09 09:45 | disposition home or self-care (01) ==
PROVIDERS: PCP Internal Medicine; Visit Provider Psychiatry & Neurology Neurology
DX: G24.3 Spasmodic torticollis (principal)
CPT/HCPCS: 64616

== ENCOUNTER 2024-08-05 08:58 | Outpatient (AMB) | payer MEDICARE, SELFPAY ==
[2024-08-05 09:01] VITALS: BP 128/78; PULSE 54; O2SAT 98; BMI 30.1
--- NOTE | 2024-08-05 09:01 | A.OFFVIS_ITS ---
Vital Signs 08/05/24 09:01 Height 5 ft 3 in Weight 170 lb BMI 30.1 BP 128/78 Blood Pressure Location Rt brachial Position Sitting Pulse 54 Pulse Source Pulse Oximeter Pulse Oximetry (%) 98 Oxygen Delivery Method Room Air Intake Visit Reasons: Follow Up 6mo Intake Note: Patient presents follow up Migraine medication. Allergies No Known Allergies Allergy (Verified 08/05/24 09:03) Medication List - Last Reconciled 08/05/24 by QUINN Dangelo aspirin 81 mg PO DAILY 30 days baclofen 5 mg PO BID PRN 30 days onabotulinumtoxinA (Botox) 100 units IM ONCE 12 weeks propranolol 10 mg PO BID 30 days riboflavin (vitamin B2) 400 mg PO DAILY 90 days rimegepant (Nurtec ODT) 75 mg PO ONCE PRN 30 days MDD 1 tab timolol 0.25% 1 drp ophthalmic (eye) DAILY HPI Comments Details: History of Present Illness The patient is a 78-year-old female presenting with persistent migraines and cervical dystonia. Her migraine is managed with riboflavin, magnesium, and Nurtec prn, with recent Botox injections providing relief as she was given extra Botox into her bilateral temples. However, since the most recent Botox tx a few weeks ago for cervical dystonia- her head tremor has reduced but she developed subsequent posterior neck weakness- more so if more active overall. However, she states that she would rather than but neck weakness rather than the headaches. The patient has fragile X syndrome, impacting neurological health. She reports speech difficulties. She had initial consult at [facility], and was advised to start Botox for spasmodic dysphonia, which was approved by her insurance. She notes it has been more difficult for her friends to hear her. However, she is hesitant to start this tx- d/t travel and duration of appts. Continues to have balance issues, but lives in a small apartment which helps. She did have an interval fall- tripped on her shoelace- undone by her cat. She did sustain a distal LLE hematoma- was evaluated at urgent care- improving, but still has some residual LLE. She does not want to use a cane. However, she is now double-knotting her shoelaces to prevnt her cat from untying them again. Engages in cognitive activities to maintain memory. She states cognition is stable. Does the [employer] games for about an hour- does better with wordle and spelling bee but also does connections, strands and the mini crossword puzzle.. She has been taking prevegen. Review of Systems - Neurological: Reports neck weakness and balance difficulties. Engages in cognitively stimulating activities. - Musculoskeletal: Reports neck muscle tightness and weakness. - Hematologic: Reports bruising on legs post-fall. [facility] Medical History Thyroid nodule Surgical History History of left cataract surgery History of intestinal surgery Family History Mother HTN (hypertension) Hyperlipidemia Stroke Social History Alcohol intake: current Comment: rarely Patient Tobacco Use Status: Never used Tobacco Physical Exam Vital Signs: Last Vital Signs Pulse 54 08/05/24 09:01 BP 128/78 08/05/24 09:01 Pulse Ox 98 08/05/24 09:01 Oxygen Delivery Method Room Air 08/05/24 09:01 BMI result Body Mass Index 30.1 Const General: cooperative and no acute distress Orientation/consciousness: patient oriented x3 Resp Effort & Inspection: normal respiratory effort and able to speak in complete sentences Neuro Other: General: A&O x's 3 Voice: hoarse hypophonia Head/neck: Decreased head tremor w/ decreased Left laterocollis, with decreased bilateral posterior and lateral cervical tightness. 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: Code(s): Q99.2 - Fragile X chromosome Category: Medical (4) Migraine without aura: Code(s): G43.009 - Migraine without aura, not intractable, without status migrainosus Category: Medical (5) Difficulty balancing: Code(s): R29.818 - Other symptoms and signs involving the nervous system Category: Medical (6) Numbness and tingling of both upper extremities: Comment: L > R Code(s): R20.0 - Anesthesia of skin; R20.2 - Paresthesia of skin Category: Medical (7) Cervical spondylosis: Code(s): M47.812 - Spondylosis without myelopathy or radiculopathy, cervical region Category: Medical Plan Discussion Notes During our discussion, I emphasized the importance of managing migraines effectively while balancing the treatment of cervical dystonia. I explained the benefits of Botox injections and acknowledged the issue of neck muscle weakness as a potential side effect. Advised she can use an OTC soft collar or next support prn or hold/reduce her baclofen dose for now- and that this weakness will resolve over the next few weeks. In regards to starting Botox for spasmodic dysphonia through [facility], I proposed exploring alternative settings for Botox administration to minimize travel disruption, suggesting satellite locations closer to her residence if available. Transportation options and the importance of timely scheduling to avoid heavy traffic were also discussed. Additionally, I reviewed her current medications and the importance of continuing cognitive activities for memory enhancement. We talked about maintaining regular communication with the medical team to ensure adequate follow-up and adjustments in management as needed. Patient was informed and verbally consented to the use of an ambient scribe for clinic note documentation during this visit. 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 Continue to optimize CV and metabolic risk factors- BP currnetly normotensive. - Engage in regular cognitive activities, such as puzzle games, to support memory. - Ensure shoes are securely tied to prevent falls. For tremor, cervical dystonia, voice tremor/dysphonia: - Consider soft neck support if needed for stability. - Monitor neck muscle weakness and balance; report significant changes. C-spine MRI- Multilevel cervical spondylosis more conspicuous at C5-6 without cord compression, edema and or myelopathy. . Continue Propranol 10mg bid Continue Baclofen 5mg bid prn voice tremor/dysphonia- again may hold/reduce until cervical weakness resolved. Continue Botox up to 200 IM for cervical dystonia, as pt has had good clinical effect form use. Follow-up w/ [facility] to start Botox tx for spasmodic dysphonia tx. Future considerations- Vascular surgery consult for known- upon review consider referral to vascular for left subclavian artery narrowing. For migraine headache: Continue Riboflavin 400mg qam and Mag Ox 400mg qhs. Continue Propranolol as abobe- may act as a migraine preventive as well. May continue OTC Tylenol or Aleve prn. Continue Rimegepant ODT (Nurtec ODT) 75mg, 1 tab every other day. Max of 1 tabs (75mg) per 24 hours. May adjunct with OTC Tylenol 650mg q 4 hours, Ibuprofen 600mg q 6 hours, or Naproxen 440mg q 12 hrs prn. Pt to follow-up in 6 months or sooner prn. 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
== END 2024-08-05 10:09 | disposition home or self-care (01) ==
LOC: HO.HSMS 08:58
PROVIDERS: PCP Internal Medicine; Visit Provider Nurse Practitioner Family
DX: G24.3 Spasmodic torticollis (principal); R49.8 Other voice and resonance disorders; Q99.2 Fragile X chromosome; G43.009 Migraine without aura, not intractable, without status migrainosus; R29.818 Other symptoms and signs involving the nervous system; R20.0 Anesthesia of skin; R20.2 Paresthesia of skin; M47.812 Spondylosis without myelopathy or radiculopathy, cervical region
CPT/HCPCS: 99214; G2211

== ENCOUNTER → 2024-08-05 08:58 | Outpatient (BNVA) | payer MEDICARE, SELFPAY | PROVIDERS: PCP Internal Medicine; Visit Provider Nurse Practitioner Family | DX: G24.3 Spasmodic torticollis (principal); R49.8 Other voice and resonance disorders; Q99.2 Fragile X chromosome; G43.009 Migraine without aura, not intractable, without status migrainosus; R29.818 Other symptoms and signs involving the nervous system; R20.0 Anesthesia of skin; R20.2 Paresthesia of skin; M47.812 Spondylosis without myelopathy or radiculopathy, cervical region | CPT/HCPCS: 99212 ==

== ENCOUNTER 2024-10-15 09:04 | Outpatient (AMB) | payer MEDICARE, SELFPAY ==
--- NOTE | 2024-10-15 09:07 | A.OFFVIS_ITS ---
Vital Signs 10/15/24 09:09 Height 5 ft 3 in Weight 170 lb BMI 30.1 BP 124/72 Blood Pressure Location Rt brachial Position Sitting Intake Visit Reasons: BOTOX Intake Note: Patient presents for botox injection practice supplied Superintendent Service: Superintendent Service Present Allergies No Known Allergies Allergy (Verified 10/15/24 09:08) HPI Comments Details: 79y/o female comes for treatment of her cervical dystonia . she is a fragile X carrier. ? Side effects including spread of toxin effect, dysphagia, breathing difficulties , bronchitis etc was discussed in detail and the patient agreed to the procedure.An informed consent was obtained ??? Botulinum toxin type A 200units X 1 -was diluted with 4 cc of normal saline at a concentration of 25 units in 0.5cc saline. Lot number [id number] expiration February ??? Muscles injected ? left levator 50 units each right levator 50 units jordon [id number] units each jordon temporlais 25 units each ??? Used- 200 units discarded 0 units PFSH Medical History Thyroid nodule Surgical History History of left cataract surgery History of intestinal surgery Family History Mother HTN (hypertension) Hyperlipidemia Stroke Social History Alcohol intake: current Comment: rarely Patient Tobacco Use Status: Never used Tobacco Physical Exam Vital Signs: Last Vital Signs BP 124/72 10/15/24 09:09 BMI result Body Mass Index 30.1 Const General: cooperative and no acute distress Orientation/consciousness: patient oriented x3 Resp Effort & Inspection: normal respiratory effort and able to speak in complete sentences Neuro Other: General: A&O x's 3 Head/neck: Decreased head tremor w/ decreased Left laterocollis, with decreased bilateral posterior and lateral cervical tightness. General: patient oriented x3 Cognition (Neuro): normal cognition Psych Appearance: grossly normal Mental Status: mental status grossly normal Affect: normal affect Attitude: cooperative Office Procedures Botulinum toxin Injection 88490 - Dystonia Procedure code (CPT) selection complete Office Meds onabotulinumtoxinA 200 unit solution for injection Performing Provider: Vivi Coon MD Performing Location: 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
[2024-10-15 09:09] VITALS: BP 124/72; BMI 30.1
== END 2024-10-15 09:34 | disposition home or self-care (01) ==
LOC: HO.HSMS 09:05
PROVIDERS: PCP Internal Medicine; Visit Provider Psychiatry & Neurology Neurology
DX: G24.3 Spasmodic torticollis (principal)
CPT/HCPCS: 64616

== ENCOUNTER → 2024-10-15 09:04 | Outpatient (BNVA) | payer MEDICARE, SELFPAY | PROVIDERS: PCP Internal Medicine; Visit Provider Psychiatry & Neurology Neurology | DX: G24.3 Spasmodic torticollis (principal) | CPT/HCPCS: 64616; 99211; J0585 ==

== ENCOUNTER 2025-01-14 09:01 | Outpatient (AMB) | payer MEDICARE, SELFPAY ==
--- NOTE | 2025-01-14 09:02 | MHC.OFFVIS ---
Vital Signs 01/14/25 09:03 Height 5 ft 3 in Weight 170 lb 4 oz BMI 30.2 BP 120/74 Blood Pressure Location Rt brachial Position Sitting Pulse 57 Pulse Source Pulse Oximeter Pulse Oximetry (%) 97 Oxygen Delivery Method Room Air Intake Visit Reasons: Botox Intake Note: Botox Sound System Installer Required: No Accompanied by: Self / Same As Patient Allergies No Known Allergies Allergy (Verified 01/14/25 09:02) Medication List - Last Reconciled 01/14/25 by Vivi Coon MD aspirin 81 mg PO DAILY 30 days baclofen 5 mg PO .qhs PRN 30 days onabotulinumtoxinA (Botox) 100 units IM ONCE 12 weeks propranolol 10 mg PO BID 30 days riboflavin (vitamin B2) 400 mg PO DAILY 90 days rimegepant (Nurtec ODT) 75 mg PO ONCE PRN 30 days MDD 1 tab timolol 0.25% 1 drp ophthalmic (eye) DAILY HPI Comments Details: 79y/o female comes for treatment of her cervical dystonia . she is a fragile X carrier. ? Side effects including spread of toxin effect, dysphagia, breathing difficulties , bronchitis etc was discussed in detail and the patient agreed to the procedure.An informed consent was obtained ??? Botulinum toxin type A 200units X 1 -was diluted with 4 cc of normal saline at a concentration of 25 units in 0.5cc saline. Lot number [id number] expiration ??? Muscles injected ? left levator 50 units each right levator 50 units jordon [id number] units each jordon temporlais 25 units each ??? Used- 200 units discarded 0 units PFSH Medical History Thyroid nodule Surgical History History of left cataract surgery History of intestinal surgery Family History Mother HTN (hypertension) Hyperlipidemia Stroke Social History Alcohol intake: current Comment: rarely Patient Tobacco Use Status: Never used Tobacco Physical Exam Vital Signs: Last Vital Signs Pulse 57 01/14/25 09:03 BP 120/74 01/14/25 09:03 Pulse Ox 97 01/14/25 09:03 Oxygen Delivery Method Room Air 01/14/25 09:03 BMI result Body Mass Index 30.2 Const General: cooperative and no acute distress Orientation/consciousness: patient oriented x3 Resp Effort & Inspection: normal respiratory effort and able to speak in complete sentences Neuro Other: General: A&O x's 3 Head/neck: Decreased head tremor w/ decreased Left laterocollis, with decreased bilateral posterior and lateral cervical tightness. General: patient oriented x3 Cognition (Neuro): normal cognition Psych Appearance: grossly normal Mental Status: mental status grossly normal Affect: normal affect Attitude: cooperative Office Procedures Botulinum toxin Injection 99028 - Dystonia Procedure code (CPT) selection complete Office Meds onabotulinumtoxinA 200 unit solution for injection Performing Provider: Vivi Coon MD [place] [facility] [place] [facility] Administered by: Vivi Coon MD on 01/14/25 12:26 Dose Route Admin Location Dispensed Lot Number Expiration Date [facility] Mask Layout Designer 200 unit IM 200 units [id number] ALLERGAN/BOTOX Total Dispensed Waste 200 units 0 % Comments: see hpi Assessment & Plan Assessment & Plan (1) 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
[2025-01-14 09:03] VITALS: BP 120/74; PULSE 57; O2SAT 97; BMI 30.2
--- OUTSIDE RECORDS SUMMARY | 2025-01-14 10:21 | XMS_ITS | Encounter Summary ---
Author Organization [facility] Address [address] [place] [address] Care Team Providers Care Breakdown Man Name Role Phone Tootie Redd DO Primary Care Provider [phone] Encounter Details Date Type Department Care Team (Late st Contact Info) Description 12/30/2024 [facility] PRIMARY CARE ABSTRACTION Natalie Harvey MA Social History Tobacco Use Types Packs/Day Years Used Date Smoking Tobacco: Never Smokeless Tobacco: Never Alcohol Use Standard Drinks/Week Comments Yes 0 (1 standard drink = 0.6 oz pur e alcohol) Comments Unknown Sex and Gender Information Value Date Recorded Sex Assigned at Not on file Legal Sex Female 6:42 PM EST Gender Identity Not on file Sexual Orientation Not on file documented as of this encounter Plan of Treatment Upcoming Encounters Date Type Department Care Team (Late Contact Info) Description 02/04/2025 9:00 AM EDT Office Visit [facility] - [facility] [address] [place], [place] [phone] Hilaria Muro NP [address] [place] [phone] documented as of this encounter Visit Diagnoses Not on filedocumented in this encounter Care Teams Breakdown Man Relationship Specialty Start Date End Date Tootie Redd DO [address] [place] [phone] PCP - General 01/05/23 documented as of this encounter
--- OUTSIDE RECORDS SUMMARY | 2025-01-14 10:21 | XMS_ITS | Clinical Summary ---
Author Organization [facility] Address [address] [place] [phone] Phone Care Team Providers Care Community Health Nurse Supervisor Name Role Phone Jeancarlos Matute MD Primary Care Provider Allergies Active Allergy Reactions Criticality Noted Date Comments Hay Fever And Allergy Relief 024 Medications aspirin 81 mg chewable tablet take 1 tablet by mouth everyday at bedtime 01/24/2024 Active baclofen (LIORESAL) 5 mg tablet TAKE 1 TABLET BY MOUTH TWICE A DAY NEEDED VOICE TREMOR OR MUSCLE SPASM 02/17/2024 Active propranoloL (INDERAL) 10 MG immediate release tablet Take 1 tablet by mouth 2 (two) times a day. 03/17/2024 Active timolol (TIMOPTIC) 0.5 % ophthalmic solution USE 1 DROP INTO LEFT EYE EVERY MORNING 03/12/2024 Active riboflavin, vitamin B2, (,VITAMIN B-2,) 25 mg Tab Take 100 mg by mouth daily. Active calcium carbonate-vitam in D3 1,250 mg (500 mg elemental)-400 units per tablet Take 1 tablet by mouth daily. Active glucosamine-cho ndroitin 500-400 mg Cap Take 1 capsule by mouth 3 (three) times a day. Active multivitamin-mi nerals-lutein (CENTRUM SILVER) Tab Take 1 tablet by mouth daily. Active Social History Tobacco Use Types Packs/Day Years Used Date Smoking Tobacco: Never Assessed Alcohol Use Standard Drinks/Week Comments Yes 0 (1 standard drink = 0.6 oz pur e alcohol) ocassionaly Education Answer Date Recorded Are you interested in more education? Not on gio e 09/03/2022 Are you concerned about learning? Not on file 09/03/2022 No 09/03/2022 No 09/03/2022 Digital Access Answer Date Recorded No 10/04/2022 No 10/04/2022 Reliable internet access at home? Not on file 10/04/2022 Device with a working camera? Not on file Comments Unknown Sex and Gender Information Value Date Recorded Sex Assigned at Not on file Legal Sex Female 12:47 PM EDT Gender Identity Not on file Sexual Orientation Not on file Last Filed Vital Signs Vital Sign Reading Time Taken Comments Blood Pressure - - Pulse - - Temperature - - Respiratory Rate - - Oxygen Saturation - - Inhaled Oxygen Concentration - - Weight 79.4 kg (175 lb) 03/22/2024 1:55 PM EST Height 160 cm (5' 3 ) 03/22/2024 1:55 PM EST Body Mass Index 31 03/22/2024 1:55 PM EST Plan of Treatment Health Maintenance Due Date Last Done Comments Adult Td,Tdap Booster 1945 LIPID PANEL 1945 DEPRESSION SCREENING 1957 SMOKING Hx and SMOKELESS TOB ACCO SCREENING 1958 HEPATITIS C SCREENING 08/26/1963 PNEUMOCOCCAL VACCINES (50+ y ears) (1 of 1 - PCV) 08/26/1995 ZOSTER VACCINES (1 of 2) 08/26/1995 OSTEOPOROSIS SCREENING INITI AL (ONE-TIME) 2010 RSV VACCINE (1 - 1-dose 75+ series) 2020 INFLUENZA VACCINE (#1) 2024 COVID-19 VACCINE ( - 2023-2 5 season) 2025 HEPATITIS A VACCINES Aged Out No long er eligible based on patient's age to complete this topic HIB VACCINES Aged Out No longer eligi ble based on patient's age to complete this topic MENINGOCOCCAL VACCINES (ACWY) Aged Out No longer eligible based on patient's age to complete this topic MENINGOCOCCAL VACCINES (B) Aged Out N o longer eligible based on patient's age to complete this topic Medical Devices Not on file Insurance [facility] MEDICARE REPLACEMENT [facility] MEDICARE REPLACEMENT [facility] MEDICARE REPLACEMENT [employer] O MEDICARE REPLACEMENT Care Teams Community Health Nurse Supervisor Relationship Specialty Start Date End Date Jeancarlos Matute MD [address] [place] [phone] PCP - General Internal Medicine 02/02/24 Additional Source Comments The information contained in this document represents components of the legal health record. It is not the complete legal health record.[facility]
--- OUTSIDE RECORDS SUMMARY | 2025-01-14 10:21 | XMS_ITS | Clinical Summary ---
Author Organization [address] [place] [address] [place] [phone] Phone Care Team Providers Care [employer] Supervisor Name Role Phone Tootie Redd DO Primary Care Provider [phone] Allergies Active Allergy Reactions Criticality Noted Date Comments Pollen Extracts 09/11/2023 Cut grass, trees Medications B complex-vitamin C-folic acid (NEPHRO-REY) 0.8 [...] (two) times a day. 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 Osteoarthritis 09/11/2023 Encounters Date Type Department Care Team Description 12/31/2024 1:15 PM EDT [facility] [place] [place] [phone] Keith Watson MD Chronic fatigue (Primary Dx); Disorder of bone, unspecified 12/30/2024 [facility] Natalie HarveyJOCELYNE 12/27/2024 Telephone Internal Medicine - [facility] [address] [place] [phone] Tootie Redd DO from Last 3 Months Immunizations Name Administration Dates Next Due Influenza Quadravalent, 0.5m l (Fluad) 65yo and older 01/24/2020 Influenza Quadravalent, 0.5m l (Fluzone High-dose) 65yo and older 01/26/2021 Influenza trivalent, 0.5mL ( Fluzone High-dose) 65yo and older 02/03/2018,01/31/2017,02/24/2016 Pneumococcal conjugate 20 va lent (Prevnar 20, PCV 20) 2mo and older 11/03/2022 RSV, bivalent, protein subun it RSVpreF, 0.5mL, Preservative Free (Arexvy) 60yo and older 04/10/2023 Tdap Tetanus diptheria acell ular pertussis (Boostrix; Adacel) 7yo and older 12/04/2023 Zoster recombinant (Shingrix ) 19yo and older 11/09/2020,01/24/2020 Surgical History Surgery Date Site/Laterality Comments OVARIAN CYST REMOVAL PROCEDURE: TX OVARIAN CYSTECTOMY UNI/BI OTHER SURGICAL HISTORY Left PROCEDURE: TX ARTHROSCOPY KNEE MENISCAL TRNSPLJ MED/LAT Medical History Medical History Date Comments Osteoarthritis DX:Osteoarthriti s 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 HTN, de pression Relation Name Status Comments Father Mother Social History Tobacco Use Types Packs/Day Years Used Date Smoking Tobacco: Never Smokeless Tobacco: Never Tobacco Cessation:Counseling Given: Not Answered Alcohol Use Standard Drinks/Week Comments Yes 0 (1 standard drink = 0.6 oz pur e alcohol) Comments Unknown Sex and Gender Information Value Date Recorded Sex Assigned at Not on file Legal Sex Female 6:42 PM EST Gender Identity Not on file Sexual Orientation Not on file Obstetrics History Last Filed Vital Signs Vital Sign Reading Time Taken Comments Blood Pressure 125/57 12/31/2024 1:05 PM EDT Pulse 57 12/31/2024 1:05 PM EDT Temperature 36.5 C (97.7 F) 04/29/2024 10:49 AM EST Respiratory Rate - - Oxygen Saturation 97% 04/29/2024 10:49 AM EST Inhaled Oxygen Concentration - - Weight 76.7 kg (169 lb 3.2 oz) 12/31/2024 1:05 P M EDT Height 160 cm (5' 3 ) 12/31/2024 1:05 PM EDT Body Mass Index 29.97 12/31/2024 1:05 PM EDT Plan of Treatment Upcoming Encounters Date Type Department Care Team (Late st Contact Info) Description 02/04/2025 9:00 AM EDT Office Visit Internal Medicine - [address] [phone] Hilaria Muro NP [address] [place] [phone] Health Maintenance Due Date Last Done Comments Falls Risk Assessment 07/14/2023 Hepatitis C Screening 07/14/2023 Medicare Annual Wellness Visit 07/14/2023 Osteoporosis Screening (Bone Density Screening) 07/14/2023 Social Influencers of Health Screening 07/14/2023 Depression Screening 05/08/2024 COVID-19 Vaccine ( season) 2025 04/10/2023, 11/03/2022, 03/04/2022, Additional history exists Influenza Vaccine (#1) 2025 , 02/08/2022, 01/26/2021, Additional history exists DTaP,Tdap,and Td Vaccines (2 - Td or Tdap) 12/03/2033 12/04/2023 Zoster Vaccines Completed 11/09/2020, 01/24/2020 Pneumococcal Vaccine: 50+ Years Completed 11/03/2022 RSV Immunization Adult Patients Completed 04/10/2023 HIB Vaccines Aged Out No [...] age to complete this topic Meningococcal B Vaccine Aged Out No l onger eligible based on patient's age to complete this topic RSV Immunization Patients Under 20 months Aged Out No longer eligible based on patient's age to complete this topic Varicella Vaccines Aged Out No longer eligible based on patient's age to complete this topic Procedures Procedure Name Priority Date/Time Associated Diagnosis Comments CBC WITH AUTO DIFFERENTIAL Routine 12/31/2024 1:32 PM EDT Chronic fatigue CBC AND DIFFERENTIAL Routine 12/31/2024 1:32 PM EDT Chronic fatigue THYROID STIMULATING HORMONE WITH REFLEX TO FREE T4 AND FREE T3 Routine 12/31/2024 1:32 PM EDT Chronic fatigue COMPREHENSIVE METABOLIC PANEL Routine 12/31/2024 1:32 PM EDT Chronic fatigue VITAMIN D 25 HYDROXY Routine 12/31/2024 1:32 PM EDT Chronic fatigue Disorder of bone, unspecified from Last 3 Months Results * Thyroid stimulating hormone with reflex to free t4 and free t3 (12/31/2024 1:32 PM EDT) TSH 2.31 0.40 - 4.00 mcIU/mL LAB CHEMISTRY METHOD 12/31/2024 5:23 PM EDT [facility] Blood Venous blood specimen / Unknown Venipuncture / Unknown 12/31/2024 1:32 PM EDT 12/31/2024 1:32 PM EDT Keith Watson MD LAB BLOOD ORDERABLES Final Resu lt [facility] [address] [place] [address], * (ABNORMAL) CBC auto differential (12/31/2024 1:32 PM EDT) WBC 8.4 4.8 - 10.8 K/mcL LAB HEMETOLOGY METHOD 12/31/2024 3:26 PM EDT [facility] RBC 4.80 3.80 - 4.80 M/mcL LAB HEMETOLOGY METHOD 12/31/2024 3:26 PM EDT [facility] Hemoglobin 13.5 11.5 - 16.0 g/dL LAB HEMETOLOGY METHOD 12/31/2024 3:26 PM EDT [facility] Hematocrit 42.1 35.0 - 47.0 % LAB HEMETOLOGY METHOD 12/31/2024 3:26 PM EDT [facility] MCV 87.3 79.0 - 98.0 FL LAB HEMETOLOGY METHOD 12/31/2024 3:26 PM EDT [facility] MCH 28.0 27.0 - 32.0 pcg LAB HEMETOLOGY METHOD 12/31/2024 3:26 PM EDT [facility] MCHC 32.1 32.0 - 37.0 g/dL LAB HEMETOLOGY METHOD 12/31/2024 3:26 PM EDT [facility] RDW 14.2 11.0 - 15.0 % LAB HEMETOLOGY METHOD 12/31/2024 3:26 PM EDT [facility] Platelets 283 130 - 400 K/mcL LAB HEMETOLOGY METHOD 12/31/2024 3:26 PM [facility] MPV 11.4(H) 7.0 - 11.0 FL LAB HEMETOLOGY METHOD 12/31[facility]24 [facility] NRBC 0.0 <1.0 % LAB HEMETOLOGY METHOD 12/31/2024 3:26 PM [facility] NRBC Absolute 0.00 <0.10 K/mcL LAB HEMETOLOGY METHOD 12/31/2024 3:26 PM [facility] Neutrophils Relative 46.7 % LAB HEMETOLOGY METHOD 12/31/2024 3:26 PM [facility] Lymphocytes Relative 40.0 % LAB HEMETOLOGY METHOD 12/31/2024 3:26 PM [facility] Monocytes Relative 10.1 % LAB HEMETOLOGY METHOD 12/31/2024 3:26 PM [facility] Eosinophils Relative 2.0 % LAB HEMETOLOGY METHOD 12/31/2024 3:26 PM [facility] Basophils Relative 0.8 % LAB HEMETOLOGY METHOD 12/31/2024 3:26 PM [facility] Immature Granulocytes Relative 0.4 % LAB HEMETOLOGY METHOD 12/31/2024 3:26 PM [facility] Neutrophils Absolute 3.91 1.50 - 7.00 K/mcL LAB HEMETOLOGY METHOD 12/31/2024 3:26 PM [facility] Lymphocytes Absolute 3.36 1.00 - 5.00 K/mcL LAB HEMETOLOGY METHOD 12/31/2024 3:26 PM [facility] Monocytes Absolute 0.85 0.20 - 1.00 K/mcL LAB HEMETOLOGY METHOD 12/31/2024 3:26 PM [facility] Eosinophils Absolute 0.17 0.00 - 0.50 K/mcL LAB HEMETOLOGY METHOD 12/31/2024 3:26 PM EDT [facility] Basophils Absolute 0.07 0.00 - 0.20 K/[facility] HEMETOLOGY METHOD 12/31/2024 3:26 PM EDT [facility] Immature Granulocytes Absolute 0.03 0.00 - 0.03 K/[facility] LAB HEMETOLOGY METHOD 12/31/2024 3:26 PM EDT [facility] Blood Venous blood specimen / Unknown Venipuncture / Unknown 12/31/2024 1:32 PM EDT 12/31/2024 1:32 PM EDT Keith Watson MD LAB BLOOD ORDERABLES Final Resu lt Performing Organization Address [facility]/ZIP Co de Phone Number [facility] [address] [place] [address], * Vitamin D 25 hydroxy (12/31/2024 1:32 PM EDT) Vit D, 25-Hydroxy 42.0 30.0 - 80.0 ng/mL LAB CHEMISTRY METHOD 12/31/2024 5:22 PM EDT [facility] Blood Venous blood specimen / Unknown Venipuncture / Unknown 12/31/2024 1:32 PM EDT 12/31/2024 1:32 PM EDT Keith Watson MD LAB BLOOD ORDERABLES Final Resu lt Performing Organization Address City/[facility]/ZIP Co de Phone Number [facility] [address] [place] [address], [place] [phone] * Comprehensive metabolic panel (12/31/2024 1:32 PM EDT) Sodium 140 133 - 145 mmol/L LAB CHEMISTRY METHOD 12/31/2024 4:27 PM EDT [facility] Potassium 4.3 3.5 - 5.5 mmol/L LAB CHEMISTRY METHOD 12/31/2024 4:27 PM [facility] Chloride 108 96 - 110 mmol/L LAB CHEMISTRY METHOD 12/31/2024 4:27 PM [facility] CO2 28 21 - 32 mmol/L LAB CHEMISTRY METHOD 12/31/2024 4:27 PM [facility] Anion Gap 4 3 - 11 LAB CHEMISTRY METHOD 12/31/2024 4:27 PM [facility] Glucose 81 70 - 100 mg/dL LAB CHEMISTRY METHOD 12/31/2024 4:27 PM [facility] BUN 11 5 - 25 mg/dL LAB CHEMISTRY METHOD 12/31/2024 4:27 PM [facility] Creatinine 0.69 0.50 - 1.10 mg/dL LAB CHEMISTRY METHOD 12/31/2024 4:27 PM [facility] eGFR 88 >=60 mL/min/1. 73m2 LAB CHEMISTRY METHOD 12/31/2024 4:27 PM [facility] Comment:Calculation based on the Chronic Kidney Disease Epidemiology Collaboration (CKD-EPI) equation refit without adjustment for race. BUN/Creatinine Ratio 15.9 LAB CHEMISTRY METHOD 12/31/2024 4:27 PM [facility] Calcium 9.1 8.5 - 10.5 mg/dL LAB CHEMISTRY METHOD 12/31/2024 4:27 PM [facility] AST (SGOT) 18 10 - 42 unit/L LAB CHEMISTRY METHOD 12/31/2024 4:27 PM [facility] ALT (SGPT) 31 10 - 60 unit/L LAB CHEMISTRY METHOD 12/31/2024 4:27 PM [facility] Alkaline Phosphatase 87 42 - 121 unit/L LAB CHEMISTRY METHOD 12/31/2024 4:27 PM [facility] Total Protein 6.4 6.0 - 8.0 g/dL LAB CHEMISTRY METHOD 12/31/2024 4:27 PM EDT [facility] Albumin 3.9 3.2 - 5.0 g/dL LAB CHEMISTRY METHOD 12/31/2024 4:27 PM EDT [facility] Total Bilirubin 0.3 0.0 - 1.4 mg/dL LAB CHEMISTRY METHOD 12/31/2024 4:27 PM EDT [facility] Blood Venous blood specimen / Unknown Venipuncture / Unknown 12/31/2024 1:32 PM EDT 12/31/2024 1:32 PM EDT Keith Watson MD LAB BLOOD ORDERABLES Final Resu lt [facility] [address] [place] [address], from Last 3 Months Insurance [employer] MEDICARE ADVANTAGE MEDICAID - [place] Care Teams [employer] Supervisor Relationship Specialty Start Date End Date Tootie Redd DO [address] [place] [address] PCP - General 01/05/23
--- OUTSIDE RECORDS SUMMARY | 2025-01-14 10:21 | XMS_ITS | Encounter Summary ---
Author Organization [facility] Address [address] [place] [phone] Phone Care Team Providers Care Web Manager Name Role Phone Jeancarlos Matute MD Primary Care Provider Encounter Details Date Type Department Care Team ([facility] st Contact Info) Description 03/29/[address] [facility] Laryngology Division [address] [facility] [address], [place] [address] Emily Soares PA-C, MPH [address] [place] [address] [email or web address] Social History Tobacco Use Types Packs/Day Years [...] as of this encounter Plan of Treatment Not on file documented as of this encounter Visit Diagnoses Not on filedocumented in this encounter Care Teams Web Manager Relationship Specialty Start Date End Date Jeancarlos Matute MD [address] [place] [phone] PCP - General Internal Medicine 02/02/24 documented as of this encounter Additional Source Comments The information contained in this document represents components of the legal health record. It is not the complete legal health record.[facility]
--- OUTSIDE RECORDS SUMMARY | 2025-01-14 10:21 | XMS_ITS ---
Author Name [facility] Organization Unknown Care Team Organization Name Specialty Phone Email Start Date End Da te [facility] 03/15/20222023
== END 2025-01-14 09:34 | disposition home or self-care (01) ==
LOC: HO.HSMS 09:02
PROVIDERS: PCP Internal Medicine; Visit Provider Psychiatry & Neurology Neurology
DX: G24.3 Spasmodic torticollis (principal)
CPT/HCPCS: 64616

== ENCOUNTER → 2025-01-14 09:01 | Outpatient (BNVA) | payer MEDICARE, SELFPAY | PROVIDERS: PCP Internal Medicine; Visit Provider Psychiatry & Neurology Neurology | DX: G24.3 Spasmodic torticollis (principal) | CPT/HCPCS: 64616; 99211; J0585 ==

== ENCOUNTER 2025-02-12 09:35 | Outpatient (AMB) | payer MEDICARE, SELFPAY ==
[2025-02-12 09:38] VITALS: BP 110/70; PULSE 60; O2SAT 97; BMI 30.6
--- NOTE | 2025-02-12 09:38 | MHC.OFFVIS ---
Vital Signs 02/12/25 09:38 Height 5 ft 3 in Weight 173 lb BMI 30.6 BP 110/70 Blood Pressure Location Lt brachial Pulse 60 Pulse Source Pulse Oximeter Pulse Oximetry (%) 97 Oxygen Delivery Method Room Air Intake Visit Reasons: 6 MO FU Intake Note: Patient presents follow up Migraine medication. 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 She reports after the last Botox injection, she switched her propranolol and baclofen to bedtime, at the advice of Dr. Coon, to try to reduce daytime lightheadedness and dizziness, but she notes that she did not realize that she did not have to take the baclofen nightly. She is taking baclofen 10mg, Propranolol 20mg, ASA 81mg qhs, and also taking [employer] brand generic sleep aid at times. She is hesitant to decrease baclofen or propranolol, as she does not want her head to shake. She also reports increased depression symptoms, depressed, motivation, daytime sleepiness. She states she is prone to become more depressed during this time a year, especially as she lost her son a few years ago on . However, she feels that this season in particular, she is more depressed than usual. For instance, she has many activities and things she likes to do, such as her art, however she just can not get herself to do these things. She states she tried therapy a few times, but never found it helpful, in fact felt it made her feel worse. She does go to the [employer] a couple of days per week, used to go 3 x's per week, and is thinking about starting to go more often. Enjoys eating lunch there and doing the arts and crafts classes. She notes that her grandson is a bright spot for her- he Her son lives in [place]- who is not currently talking to her due to something she had said to him. She is thinking about writing him a letter to apologize for what she had said to him. She states she feels that her children will be mad at her if she does not do exactly what she wants. In the past, she took a low-dose anti-depressant after her son . She felt it helped. She is not sleeping as well, and waking up after 4 hours and then is awake x's 1-2 hours. She feels more exhausted, and has to lay down and rest. She states she did she her PCP regarding this as well, and had recent labs, which showed normal vit D and TSH. She is having daily low intensity headaches. She notices more headaches before her next Botox injection. Sometimes the headache will subside if her friend does a laying of hands prayers on her head. 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 She has decided to not follow up with [facility] for Botox therapy for spasmodic dysphonia, due to travel and time burden. Continues to have balance issues, but lives in a small apartment which helps. Cognition is stable. Please a variety of different Acquia games and Wordle J OTC every day. She has been taking prevegen. [facility] Medical History Thyroid nodule Surgical History History of left cataract surgery History of intestinal surgery Family History Mother HTN (hypertension) Hyperlipidemia Stroke Social History Alcohol intake: current Comment: rarely Patient Tobacco Use Status: Never used Tobacco Physical Exam Vital Signs: Last Vital Signs Pulse 60 02/12/25 09:38 BP 110/70 02/12/25 09:38 Pulse Ox 97 02/12/25 09:38 Oxygen Delivery Method Room Air 02/12/25 09:38 BMI result Body Mass Index 30.6 Const General: cooperative and no acute distress Orientation/consciousness: patient oriented x3 Resp Effort & Inspection: normal respiratory effort and able to speak in complete sentences Neuro Other: General: A&O x's 3 Voice: hoarse hypophonia Head/neck: Decreased head tremor w/ decreased Left laterocollis. Psych: Weepy at times, though generally appropriate effect General: patient oriented x3 Cranial nerves: Yes CN's II-XII intact bilaterally Cognition (Neuro): normal cognition Psych Appearance: grossly normal Mental Status: mental status grossly normal Affect: normal affect Attitude: cooperative Assessment & Plan Assessment & Plan (1) Seasonal affective disorder: Code(s): F33.8 - Other recurrent depressive disorders Category: Medical (2) Cervical dystonia: Code(s): G24.3 - Spasmodic torticollis Category: Medical (3) Voice tremor: Code(s): R49.8 - Other voice and resonance disorders Category: Medical (4) 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: Code(s): Q99.2 - Fragile X chromosome Category: Medical (5) Migraine without aura: Code(s): G43.009 - Migraine without aura, not intractable, without status migrainosus Category: Medical Qualifiers: Status migrainosus presence: without status migrainosus Intractability: not intractable Qualified Code(s): G43.009 - Migraine without aura, not intractable, without status migrainosus (6) Difficulty balancing: Code(s): R29.818 - Other symptoms and signs involving the nervous system Category: Medical (7) Numbness and tingling of both upper extremities: Comment: L > R Code(s): R20.0 - Anesthesia of skin; R20.2 - Paresthesia of skin Category: Medical (8) Cervical spondylosis: Code(s): M47.812 - Spondylosis without myelopathy or radiculopathy, cervical region Category: Medical Plan For seasonal affective disorder: Reviewed [facility] portal, but was unable to see any records from her previous PCP, Dr. Matute Start fluoxetine 10 mg daily. Patient may benefit from using light therapy, such as a done stimulator or SAD bright light therapy. 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 Continue to optimize CV and metabolic risk factors- BP currently normotensive. - Engage in regular cognitive activities, such as puzzle games, to support memory. - Ensure shoes are securely tied to prevent falls. For tremor, cervical dystonia, voice tremor/dysphonia: C-spine MRI- Multilevel cervical spondylosis more conspicuous at C5-6 without cord compression, edema and or myelopathy. . Continue Propranol 20 mg daily at bedtime, hold for lightheadedness Continue Baclofen 5-10mg daily at bedtime prn voice tremor/dysphonia Continue Botox up to 200 IM for cervical dystonia, as pt has had good clinical effect form use. Patient has decided against following up with [facility] to start Botox tx for spasmodic dysphonia tx. For migraine headache: Continue Riboflavin 400mg qam and Mag Ox 400mg qhs. Continue Propranolol as above- may act as a migraine preventive as well. May continue OTC Tylenol or Aleve prn. Continue Rimegepant ODT (Nurtec ODT) 75mg, 1 tab daily as needed. Max of 1 tabs (75mg) per 24 hours. May adjunct with OTC Tylenol 650mg q 4 hours, Ibuprofen 600mg q 6 hours, or Naproxen 440mg q 12 hrs prn. Migraine treatment contraindications: All triptans and DHE due to history of stroke Pt to follow-up in 6 months or sooner prn. 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
== END 2025-02-12 10:58 | disposition home or self-care (01) ==
LOC: HO.HSMS 09:36
PROVIDERS: PCP Internal Medicine; Visit Provider Nurse Practitioner Family
DX: F33.8 Other recurrent depressive disorders (principal); G24.3 Spasmodic torticollis; R49.8 Other voice and resonance disorders; Q99.2 Fragile X chromosome; G43.009 Migraine without aura, not intractable, without status migrainosus; R29.818 Other symptoms and signs involving the nervous system; R20.0 Anesthesia of skin; R20.2 Paresthesia of skin; M47.812 Spondylosis without myelopathy or radiculopathy, cervical region
CPT/HCPCS: 99214

== ENCOUNTER → 2025-02-12 09:35 | Outpatient (BNVA) | payer MEDICARE, SELFPAY | PROVIDERS: PCP Internal Medicine; Visit Provider Nurse Practitioner Family | DX: M47.812 Spondylosis without myelopathy or radiculopathy, cervical region (principal); G24.8 Other dystonia; R20.0 Anesthesia of skin; R20.2 Paresthesia of skin; G43.009 Migraine without aura, not intractable, without status migrainosus; Q99.2 Fragile X chromosome; R49.8 Other voice and resonance disorders; G24.3 Spasmodic torticollis; F33.8 Other recurrent depressive disorders | CPT/HCPCS: 99212 ==

== ENCOUNTER → 2025-04-14 09:04 | Outpatient (BNVA) | payer MEDICARE, SELFPAY | PROVIDERS: PCP Internal Medicine; Visit Provider Psychiatry & Neurology Neurology | DX: G24.3 Spasmodic torticollis (principal); Z14.8 Genetic carrier of other disease | CPT/HCPCS: 64616; 99211; J0585 ==

== ENCOUNTER 2025-04-14 09:29 | Outpatient (AMB) | payer MEDICARE, SELFPAY ==
[2025-04-14 09:22] VITALS: BP 112/70; PULSE 56; O2SAT 97; BMI 29.8
--- NOTE | 2025-04-14 09:22 | MHC.OFFVIS ---
Vital Signs 04/14/25 09:22 Height 5 ft 3 in Weight 168 lb 2 oz BMI 29.8 BP 112/70 Blood Pressure Location Rt brachial Position Sitting Pulse 56 Pulse Source Pulse Oximeter Pulse Oximetry (%) 97 Oxygen Delivery Method Room Air Intake Visit Reasons: Botox Intake Note: Botox 200 Computer Peripheral Equipment Operator Required: No Accompanied by: Self / Same As Patient Allergies No Known Allergies Allergy (Verified 04/14/25 09:22) Medication List - Last Reconciled 04/14/25 by Vivi Coon MD aspirin 81 mg PO DAILY 30 days baclofen 10 mg PO .qhs 30 days onabotulinumtoxinA (Botox) 100 units IM ONCE 12 weeks propranolol 10 mg PO BID 30 days riboflavin (vitamin B2) 400 mg PO DAILY 90 days timolol maleate 0.5% 1 drp ophthalmic (eye) BID venlafaxine ER 37.5 mg PO DAILY HPI Comments Details: 79y/o female comes for treatment of her cervical dystonia . she is a fragile X carrier. ? Side effects including spread of toxin effect, dysphagia, breathing difficulties , bronchitis etc was discussed in detail and the patient agreed to the procedure.An informed consent was obtained ??? Botulinum toxin type A 200units X 1 -was diluted with 4 cc of normal saline at a concentration of 25 units in 0.5cc saline. Lot number [id number] expiration July 2027 ??? Muscles injected ? left levator 50 units each right levator 50 units jordon [id number] units each jordon temporlais 25 units each ??? Used- 200 units discarded 0 units PFSH Medical History Thyroid nodule Surgical History History of left cataract surgery History of intestinal surgery Family History Mother HTN (hypertension) Hyperlipidemia Stroke Social History Alcohol intake: current Comment: rarely Patient Tobacco Use Status: Never used Tobacco Physical Exam Vital Signs: Last Vital Signs Pulse 56 04/14/25 09:22 BP 112/70 04/14/25 09:22 Pulse Ox 97 04/14/25 09:22 Oxygen Delivery Method Room Air 04/14/25 09:22 BMI result Body Mass Index 29.8 Const General: cooperative and no acute distress Orientation/consciousness: patient oriented x3 Resp Effort & Inspection: normal respiratory effort and able to speak in complete sentences Neuro Other: General: A&O x's 3 Head/neck: Decreased head tremor w/ decreased Left laterocollis, with decreased bilateral posterior and lateral cervical tightness. General: patient oriented x3 Cognition (Neuro): normal cognition Psych Appearance: grossly normal Mental Status: mental status grossly normal Affect: normal affect Attitude: cooperative Office Procedures Botulinum toxin Injection 88649 - Dystonia Procedure code (CPT) selection complete Office Meds onabotulinumtoxinA 200 unit solution for injection Performing Provider: Vivi Coon MD Performing Location: [facility] Administered by: Vivi Coon MD on 04/14/25 09:58 Dose Route Admin Location Dispensed Lot Number Expiration Date [facility] Belt Dresser 200 unit IM 200 units [id number] ALLERGAN/BOTOX Total Dispensed Waste 200 units 0 % Comments: see hpi Assessment & Plan Assessment & Plan (1) Cervical dystonia: Code(s): G24.3 - Spasmodic torticollis Category: Medical Plan Patient tolerated the procedure well she will call with any side effects propranolol to 20 mg qhs Baclofen 10 mg qhs Orders: Orders AMB Botulinum toxin Injection Today G24.3 - Spasmodic torticollis Medications: Changed From baclofen 5 mg PO .qhs 30 days PRN 180 tabs 1RF voice tremor or muscle spasm To baclofen 10 mg PO .qhs 30 tabs 6RF voice tremor or muscle spasm 30 days Coding Level of Care Code Est Pt Level 1 (02022) Diagnoses Cervical dystonia G24.3 CPT Codes Botox Injection - Botox 4: 49121 - Dystonia ([id number])
== END 2025-04-14 09:46 | disposition home or self-care (01) ==
PROVIDERS: PCP Internal Medicine; Visit Provider Psychiatry & Neurology Neurology
DX: G24.3 Spasmodic torticollis (principal)
CPT/HCPCS: 64616